=== PATIENT | female | born 1960 | race Caucasian/White ===

== ENCOUNTER 2018-10-30 08:02 | Day surgery (SDC) | payer OTHER ==
[~2018-10-30] VITALS: Ht 152.4 cm; Wt 73.3 kg
[2018-10-30] MEDS ORDERED: simvastatin (08:58)
[2018-10-30] MEDS ORDERED: zetia (08:58)
[2018-10-30] MEDS ORDERED: pantoprazole (08:58)
[2018-10-30] MEDS ORDERED: losartan (08:58)
[2018-10-30] MEDS ORDERED: effexor (08:58)
[2018-10-30] MEDS ORDERED: aspirin (08:58)
[2018-10-30] MEDS ORDERED: carvedilol (08:58)
[2018-10-30 09:00] VITALS: Ht 152.4 cm; Wt 73.3 kg
--- NOTE | 2018-10-30 09:10 | PREAC ---
Date/Time of Note Date/Time of Note DATE: 10/30/18 TIME: 09:09 Anesthesia Eval and Record Evaluation Time Pre-Procedure Interview DATE: 10/30/18 TIME: 09:09 Age 57 Sex female NPO: 8 hrs Preoperative diagnosis ABDOMINAL PAIN, CHANGE IN BOWEL HABITS Planned procedure EGD, COLONOSCOPY WITH BIOPSIES Past Medical History Past Medical History: Includes Cardio: HTN, Dyslipidemia Psych: Depression Surgery & Anesthesia Issues No known issue Meds Anticoagulation: No Beta Velasquez within 24 hr: No Reason Beta Velasquez not given: Pt. not on B-Velasquez Reported Medications [effexor] No Conflict Check 10/30/18 [aspirin] No Conflict Check 10/30/18 [pantoprazole] No Conflict Check 10/30/18 [zetia] No Conflict Check 10/30/18 [simvastatin] No Conflict Check 10/30/18 [losartan] No Conflict Check 10/30/18 [carvedilol] No Conflict Check 10/30/18 Meds reviewed: Yes Allergies Coded Allergies: amoxicillin (Verified Allergy, Unknown, 10/30/18) Allergies Reviewed: Yes Labs/Studies Labs Reviewed: Reviewed by anesthesiologist test: N/A Pre-procedure Exam Airway: Adequate mouth opening, Adequate thyromental dist Mallampati: Mallampati II Teeth: Normal Lung: Normal Heart: Normal ASA Physical Status ASA physical status: 2 Emergency: None Planned Anesthetic General/MAC: MAC Planned Pain Management Parenteral pain med Pre-operative Attestations Prior to commencing anesthesia and surgery, the patient was re-evaluated, there was verification of: *The patient's identity *The results of appropriate recent lab work and preoperative vital signs *The above evaluation not changing prior to induction *Anesthetic plan, risk benefits, alternative and complications discussed with patient/family; questions answered; patient/family understands, accepts and wishes to proceed. Moises Guevara M.D. October 30, 2018 09:10
[2018-10-30 09:11] VITALS: BP 143/65; PULSE 79; RESP 18
[2018-10-30] MEDS ORDERED: LIDOCAINE 100 MG SYRINGE ONE (09:33)
[2018-10-30] MEDS ORDERED: PROPOFOL 40 ML ONE (09:33)
[2018-10-30 10:40] VITALS: BP 143/77; PULSE 92; RESP 18
--- NOTE | 2018-10-31 12:26 | PAC ---
Date/Time of Note Date/Time of Note DATE: 10/31/18 TIME: 12:26 Post-Anesthesia Notes Post-Anesthesia Note Last documented vital signs Vital Signs Date Temp Pulse Resp B/P (MAP) Pulse Ox O2 O2 Flow FiO2 Time Delivery Rate 10/30/18 92 18 143/77 96 Room Air 10:40 (99) 10/30/18 98.0 09:11 Activity: WNL Respiratory function: WNL Cardiovascular function: WNL Mental status: Baseline Pain reasonably controlled: Yes Hydration appropriate: Yes Nausea/Vomiting absent: Yes Moises Guevara M.D. October 31, 2018 12:26
== END 2018-10-30 12:44 | disposition home or self-care (01) ==
LOC: GIL 08:02
PROVIDERS: ATTEND Internal Medicine Gastroenterology
DX: R19.4 Change in bowel habit (principal); K64.8 Other hemorrhoids; D12.5 Benign neoplasm of sigmoid colon; K44.9 Diaphragmatic hernia without obstruction or gangrene; K29.50 Unspecified chronic gastritis without bleeding
CPT/HCPCS: 43239; 45385; 88305; 88312; J2001; Z7610